=== PATIENT | male | born 1985 | race Caucasian/White ===

== ENCOUNTER 2019-12-17 08:05 | Emergency (ER) | payer SELFPAY ==
[~2019-12-17] VITALS: Ht 170.2 cm; Wt 136.1 kg
[2019-12-17 08:11] VITALS: BP 128/81
--- NOTE | 2019-12-17 08:19 | NUR ---
PT AMBULATE TO BED 7 WITH STEADY GAIT.
--- NOTE | 2019-12-17 08:22 | NUR ---
C/O NAUSEA WITH EMESIS X 5 DAYS ABOUT 5 EPISODES EACH DAY---UNABLE TO TOLERATE ANY PO'S ----DENIES LOOSE/WATERY STOOLS, DENIES ABD PAIN . PT AOX4, AFIBRILE , AMBULATORY WITH STEADY GAIT ,PINK PALPEBRAL CONJUNCTIVA , ANICTERIC SCLERA , MOIST MUCUS MEMBRANE , ROUND SOFT ABDOMEN , GOOD SKIN TURGOR. HX- DENIES RX--NONE
--- NOTE | 2019-12-17 08:35 | NUR ---
DR ORDAZ AT BEDSIDE EVALUATING PT.
[2019-12-17] MEDS ORDERED: NACL 0.9% 1,000 ML IV SCH (08:36)
[2019-12-17] MEDS ORDERED: FAMOTIDINE 20 MG/2 ML VIAL IVP ONE (08:40)
[2019-12-17] MEDS ORDERED: ONDANSETRON 4 MG/2 ML VIAL IVP ONE (08:40)
[2019-12-17 09:02] LABS: BASOPHILS # (AUTO) 0.1 K/uL (0.00-0.22); BASOPHILS % (AUTO) 2.1 % (0.0-2.0); EOSINOPHILS % (AUTO) 0.1 % (0.0-4.0); HEMATOCRIT 48.1 % (36-52); HEMOGLOBIN 16.7 g/dL (12.0-18.0); LYMPHOCYTES # (AUTO) 1.4 K/uL (2.0-11.5); MEAN CORPUSCULAR HEMOGLOBIN 33 pg (27-31); MEAN CORPUSCULAR HGB CONC 35 g/dL (33-37); MEAN CORPUSCULAR VOLUME 93.9 fL (80-94); MONOCYTES # (AUTO) 0.4 K/uL (0.8-1.0); NEUTROPHILS # (AUTO) 4.8 K/uL (1.8-7.7); NEUTROPHILS % (AUTO) 70.8 % (42.2-75.2); PLATELET COUNT (AUTO) 153 K/uL (140-450); RED BLOOD CELL COUNT(AUTO) 5.12 MIL/uL (4.20-6.10); RED CELL DISTRIBUTION WIDTH 12.5 % (11.6-13.7); WHITE BLOOD COUNT (AUTO) 6.8 K/uL (4.8-10.8)
[2019-12-17 09:26] LABS: ALBUMIN 3.6 g/dL (3.4-5.0); ANION GAP 14.1 (8-16); CARBON DIOXIDE 24.4 mmol/L (21-32); CREATININE 0.9 mg/dL (0.6-1.3); POTASSIUM 3.5 mmol/L (3.5-5.1); TOTAL BILIRUBIN 0.8 mg/dL (0.0-1.0)
[2019-12-17 09:34] LABS: APPEARANCE,URINE CLEAR (CLEAR); BILIRUBIN,URINE 1+ (NEGATIVE); BLOOD, URINE NEGATIVE (NEGATIVE); COLOR,URINE ORANGE (YELLOW); LEUKOCYTE ESTERASE ,URINE NEGATIVE (NEGATIVE); NITRITE, URINE NEGATIVE (NEGATIVE); UGLUCOSE NEGATIVE (NEGATIVE)
--- NOTE | 2019-12-17 09:46 | NUR ---
PT AOX4, COMFORTABLE IN BED SIDE RAILS UP X1 AND LOCK.
[2019-12-17 09:52] LABS: RBC,URINE 0-5 /HPF (0-5); WBC,URINE 0-5 /HPF (0-5)
--- NOTE | 2019-12-17 10:02 | NUR ---
DR ORDAZ AT BEDSIDE REEVALUATING PT.
[2019-12-17 10:22] VITALS: BP 120/79
--- NOTE | 2019-12-17 10:23 | NUR ---
Patient discharged with v/s stable. Written and verbal after care instructions given and explained regarding acute pancreatitis . Patient alert, oriented and verbalized understanding of instructions. Ambulatory with steady gait. All questions addressed prior to discharge. ID band removed. Patient advised to follow up with PMD. Rx of pepcid and zofran given. Patient educated on indication of medication including possible reaction and side effects. Opportunity to ask questions provided and answered.
== END 2019-12-17 10:23 | disposition home or self-care (01) ==
LOC: MED 08:05
DX: K85.90 Acute pancreatitis without necrosis or infection, unspecified (principal)
CPT/HCPCS: 36415; 80053; 81001; 83690; 85025; 96361; 96374; 96375; 99284; J2405; J3490; J7030